=== PATIENT | female | born 1980 | race Caucasian/White ===

== ENCOUNTER 2021-03-22 10:01 | Emergency (ER) | payer BC ==
[2021-03-22] MEDS ORDERED: Ibuprofen 200 MG Tab PO PRN (10:25)
[2021-03-22 11:02] LABS: STREP A BY PCR NOT DETECTED (NOT DETECT)
[2021-03-22 11:13] LABS: CORONAVIRUS COVID-19 NAA NEGATIVE (NEGATIVE)
[2021-03-22 12:50] VITALS: BP 140/81; PULSE 98
== END 2021-03-22 11:40 | disposition home or self-care (01) ==
LOC: VM.ED 10:01
DX: J02.9 Acute pharyngitis, unspecified (principal); Z88.5 Allergy status to narcotic agent; Z88.0 Allergy status to penicillin; Z20.822 Contact with and (suspected) exposure to COVID-19
CPT/HCPCS: 0240U; 87651-QW; 99283; A9270-GY

== ENCOUNTER 2023-11-10 19:25 | Emergency (ER) | payer BC ==
[2023-11-10 20:55] LABS: STREP A BY PCR NOT DETECTED (NOT DETECT)
[2023-11-10 21:05] LABS: CORONAVIRUS COVID-19 NAA NEGATIVE (NEGATIVE)
[2023-11-10 21:06] LABS: INFLUENZA A NAA NEGATIVE (NEGATIVE); INFLUENZA B NAA NEGATIVE (NEGATIVE)
[2023-11-10] MEDS: predniSONE 20 MG Tab PO ONE (21:15)
[2023-11-10 22:01] VITALS: BP 133/78; PULSE 112
== END 2023-11-10 21:21 | disposition home or self-care (01) ==
LOC: VM.ED 19:25
DX: J40 Bronchitis, not specified as acute or chronic (principal); Z90.49 Acquired absence of other specified parts of digestive tract; Z88.0 Allergy status to penicillin; Z88.5 Allergy status to narcotic agent; Z88.6 Allergy status to analgesic agent
CPT/HCPCS: 0240U; 87651-QW; 99283; 99284; J7512

== ENCOUNTER 2024-10-29 09:03 | Emergency (ER) | payer BC ==
[2024-10-29 09:14] VITALS: BP 146/72; PULSE 93
== END 2024-10-29 10:08 | disposition home or self-care (01) ==
LOC: VM.ED 09:03
DX: K59.00 Constipation, unspecified (principal); Z90.710 Acquired absence of both cervix and uterus; Z88.0 Allergy status to penicillin; Z88.8 Allergy status to other drugs, medicaments and biological substances; Z90.49 Acquired absence of other specified parts of digestive tract
CPT/HCPCS: 99283